=== PATIENT | male | born 1980 | race Caucasian/White ===

== ENCOUNTER 2024-04-27 08:31 | Outpatient (REF) | payer BC, SELFPAY ==
--- NOTE | ~2024-04-27 | US_ITS ---
CLINICAL HISTORY: LOW BACK PAIN US Renal Comparison: None Findings: Right kidney normal size and echotexture, 12.2 cm length. Left kidney normal size and echotexture, 11.9 cm length. No hydronephrosis of either kidney. Normal color Doppler. Urinary bladder is unremarkable. Prevoid volume 485 mL. Postvoid volume 52 mL. Bilateral ureteral jets are visualized. IMPRESSION: 1. Normal kidneys. 2. Postvoid residual of 52 mL within the bladder. This document has been electronically signed by: Jeane Lay MD on 04/28/2024 09:04:25
--- OUTSIDE RECORDS SUMMARY | 2024-04-27 08:50 | XMS_ITS ---
Author Name [facility] Organization Unknown Encounters Encounter Type Encounter Reason Primary Diagnosis Location Date Ambulatory [facility], [facility]. ([facility]) 03/04/2024
--- OUTSIDE RECORDS SUMMARY | 2024-04-27 08:50 | XMS_ITS | Data Portability ---
Author Organization [facility], [address] Address [address] [place] [address] Assessment No assessment recorded. Plan of Treatment Reminders Order Date Submit Date Provider Last Modified By Organization Details Last Modified Time Details Appointments None recorded. Lab urinalysis , dipstick 2024 025 [facility], [address] [place] [address], [phone], 12:49:12 culture, urine 2024 025 G[facility], [address] [place] [address], [place], [address], 22:06:37 Referral None recorded. Procedures None recorded. Surgeries None recorded. Imaging None recorded. Medication Orders None recorded. Patient TargetsNo targets recorded. Patient Instructions Encounter Date Encounter Id Patient Instructions Last Modified By Organization Details Last Modified Time 03/04/2024 [id number] back care and preventing injuries: care instructions Not available 03/04/2024 12:49:12 getting back to normal after low back pain: care instructions Not available 03/04/2024 12:49:12 learning about relief for back pain Not available 03/04/2024 12:49:12 Reason for Referral None Reported. Results Created Date Observation Date Name Description Value Unit Range Abnormal Flag Note LastModifiedBy Organization Detail LastModifiedTime 03/04/1903/05/2024 URINE CULTU RE, ROUTI NE urine culture, routine FINAL REPORT Not Available [facility] ([facility]) [address] [facility], [place], [address], 03/05/2024 22:06:37 03/04/19 25 03/05/2024 URINE CULTU RE, ROUTI NE result 1 NO GROWTH Not Available [facility] ([facility]) [address] [facility], [place], [address], 03/05/2024 22:06:37 03/04/19 25 03/04/2024 urina lysis , dipst ick Unknown Analyte Light Yellow Not Available [facility] [address] [facility] [place], [address], 03/04/2024 12:32:25 03/04/1903/04/2024 urina lysis , dipst ick Unknown Analyte Clear Not Available [address] [place], [address], 03/04/2024 12:32:25 03/04/19 25 03/04/2024 urina lysis , dipst ick Unknown Analyte Negati ve Not Available [facility] [address] [facility] [place], [address], 03/04/2024 12:32:25 03/04/19 25 03/04/2024 urina lysis , dipst ick Unknown Analyte Negati ve Not Available [facility] [address] [facility] [place], [address], 03/04/2024 12:32:25 03/04/19 25 03/04/2024 urina lysis , dipst ick Unknown Analyte Negati ve Not Available [facility] [place], [address], 03/04/2024 12:32:25 03/04/19 25 03/04/2024 urina lysis , dipst ick Unknown Analyte 1.015 Not Available [address] [place], [address], 03/04/2024 12:32:25 03/04/19 25 03/04/2024 urina lysis , dipst ick Unknown Analyte Negati ve Not Available stoney garcia [address] [place], [address], 03/04/2024 12:32:25 03/04/19 25 03/04/2024 urina lysis , dipst ick Unknown Analyte 6.5 Not Available [facility] [address] [place], [address], 03/04/2024 12:32:25 03/04/19 25 03/04/2024 urina lysis , dipst ick Unknown Analyte Negati ve Not Available stoney garcia [address] [place], [address], 03/04/2024 12:32:25 03/04/19 25 03/04/2024 urina lysis , dipst ick Unknown Analyte 0.2 E.U./d L Not Available stoney garcia [address] [place], [address], 03/04/2024 12:32:25 03/04/19 25 03/04/2024 urina lysis , dipst ick Unknown Analyte Negati ve Not Available stoney garcia [address] [place], [address], 03/04/2024 12:32:25 03/04/19 25 03/04/2024 urina lysis , dipst ick Unknown Analyte Negati ve Not Available stoney garcia [address] [place], [address], 03/04/2024 12:32:25 Result Notes None recorded. Problems No Known Problems Medical Equipment None Reported. Allergies No known drug allergies Medications Not known to be on any medication Vitals Date Recorded Pain severity - 0-10 verbal numeric rating [Score] - Reported Body height Body mass index (BMI) Body weight Body temperature Respiratory rate Oxygen saturation Oxygen saturation in Arterial blood by Pulse oximetry Heart rate Systolic blood pressure Diastolic blood pressure Provider Name and Address Organization Details Last Updated DateTime 5 3 175.26 cm 27.3 kg/m2 85641.5 9 g 97.2 [degF] 16 /min 100 % 100 % 62 /min 131 mm[Hg] 71 mm[Hg] Loulou Ttee [place] - [facility] 12:31:52 Social History Question Answer Notes LastModified by Organizat ion Details LastModified Time Tobacco Smoking Status Never Smoker Loulou santos [place] - [facility] 03/04/2024 12:29:55 What Is Your Level Of Alcohol Consumption? None Information not available 03/04/2024 Are You Currently Employed? Yes Information not available 03/04/2024 Have You Had A Flu Shot This Season? No Information not available 03/04/2024 If No, Would You Like A Flu Shot Today? No Information not available 03/04/2024 Do You Use Any Illicit Or Recreational Drugs? No Information not available 03/04/2024 Have You Recently Traveled Abroad? No Information not available 03/04/2024 Do You Or Have You Ever Used Any Other Forms Of Tobacco Or Nicotine? No Information not available 03/04/2024 Sex: Unknown Functional Status None recorded. Mental Status None recorded. Family History Relationship Description Onset Age of this Age Resolved Age Notes LastModified by Organization Details LastModified Time Father No current problems or disability Not available 03/04 12:29:41 Mother No current problems or disability Not available 03/04 12:29:41 Medical History No medical history recorded. Past Encounters Encounter ID Performer Location Encounter Start Date Encounter Closed Date Diagnosis/Indication Diagnosis SNOMED-CT Code Diagnosis ICD10 Code Diagnosis Note [id number] [facility] Jhaveri [address] [place] [address] 03/04/2024 12:21:43 03/04/2024 12:51:16 Low back pain 057945136 M54.50 You were seen for right sided low back pain as well as increased urinary frequency. Based on my exam there 2 issues are unrelated, and your low back pain is likely muscular, not related to kidney function. Your urine is clear, and we will be sending the urine off to the lab to make sure there is no bacterial growth. Please go to the ED if there is any blood in your urine, severe back pain, or pain associated with fevers Thank you for using [facility] today, please feel free to contact our office if you have any questions or concerns. Health Concerns Section Related Observation LastModified by Organization Detai ls LastModified Time None Recorded Concern Status LastModified by Organization Details LastModified Time None Recorded Advance Directives Directive None Recorded Payers Encounter Date Sequence Insurance Name Policy Number Policy Belle Covered Member ID Belle Member ID Guarantor Name 03/04/2024 1 [place] [id number] Adam Napier [id number] Adam Napier Notes Date Note Type Note Provider Name and Address Organization Details Recorded Time 03/04/2024 text/html 43 y/o male who recently moved here now with lower R side back pain. He has also been having increased urinary frequency as well. Started about a week ago. Was looking on [place] and is now very concerned BRITTANY Jhaveri [address] [place], [address], [place] - [facility] 03/04/2024 13:04:28
== END 2024-04-27 08:32 | disposition home or self-care (01) ==
LOC: HO.UMASIMG 08:31
PROVIDERS: Visit Provider Emergency Medicine
DX: M54.50 Low back pain, unspecified (principal)
CPT/HCPCS: 76770

== ENCOUNTER → 2024-04-27 08:34 | Outpatient (BNV) | payer BC, SELFPAY | PROVIDERS: Visit Provider Radiology Diagnostic Radiology | DX: M54.50 Low back pain, unspecified (principal) | CPT/HCPCS: 76770 ==